=== PATIENT | female | born 1980 | race Caucasian/White ===

== ENCOUNTER 2017-04-07 22:08 | Emergency (ER) | payer OTHER ==
[2017-04-07 22:11] VITALS: TEMP 36.8
--- NOTE | 2017-04-07 22:42 | DIAGNOSTIC IMAGING REPORT ---
RIGHT ANKLE MIN 3 VIEWS ROUTINE CLINICAL HISTORY: 37 years-old Female presenting with fall Right. TECHNIQUE: Frontal, mortise, and lateral views of the right and ankle were obtained. COMPARISON: None. FINDINGS: Ankle mortise intact. No acute fracture or malalignment. No significant degenerative change. IMPRESSION: No acute osseous injury of the right ankle. Electronically signed by: Dat Lance M.D. 04/07/2017 10:41 PM Dictated Date/Time: 04/07/2017 10:40 PM
[2017-04-07 23:06] VITALS: BP 125/81; PULSE 80; O2SAT 95
--- NOTE | 2017-04-07 23:11 | EMERGENCY ROOM VISIT NOTE ---
History First contact with patient: 22:25 Chief Complaint: ANKLE PAIN Stated Complaint: TWISTED R LEG History of Present Illness The patient is a 37 year old female who presents to the Emergency Room with complaints of a right ankle injury. The patient was walking down a hill prostate 5 hours ago and her foot got caught in a manhole. She then fell, twisting her ankle. She complains of pain over the front and lateral aspect of the ankle. She denies any pain extending into the leg or foot. She denies paresthesias or numbness of the right foot or toes, and rates her pain a 9 out of 10 with weightbearing. The patient has taken ibuprofen and applying ice without relief. Review of Systems 10 system review was performed and was negative except for pertinent positives and negatives as indicated in history of present illness Past Medical/Surgical History Medical Problems: (1) No significant past medical history Surgical Problems: (1) No history of previous surgery Family History No pertinent family history Social History Smoking Status: Never Smoker Alcohol Use: none Housing Status: lives with family Physical Exam Vital Signs Date Time Temp Pulse Resp B/P (MAP) Pulse Ox O2 Delivery O2 Flow Rate FiO2 04/07/17 22:11 36.8 78 18 112/76 98 Room Air Physical Exam CONSTITUTIONAL: Morbidly obese female, alert and oriented X 3 with positive affect. HEENT: Normocephalic, atraumatic. Pupils equal, round and reactive. NECK: Full active range of motion without discomfort. MUSCULOSKELETAL: Examination of the right lower extremity shows lateral ankle edema. No open wounds noted. Negative anterior draw. No focal tenderness to palpation over the dorsal midfoot, metatarsals, phalanges, calcaneus, Achilles tendon or proximal fibular region. Pedal pulses are intact. Patient does have a superficial abrasion to the left anterior knee. INTEGUMENTARY: No rash or other significant dermatologic conditions noted. NEUROLOGIC: Right foot and toes are sensory intact. Medical Decision & Procedures ER Provider Diagnostic Interpretation: My interpretation of right ankle x-rays does not show any acute fractures, dislocation or ankle mortise asymmetry. Radiologist report is as follows: RIGHT ANKLE MIN 3 VIEWS ROUTINE CLINICAL HISTORY: 37 years-old Female presenting with fall Right. TECHNIQUE: Frontal, mortise, and lateral views of the right and ankle were obtained. COMPARISON: None. FINDINGS: Ankle mortise intact. No acute fracture or malalignment. No significant degenerative change. IMPRESSION: No acute osseous injury of the right ankle. ED Course Patient history and physical exam were performed. Nurse's notes were reviewed. Vital signs were reviewed normal. The patient does speak limited Khmer. She does have a friend with her is fluent in Khmer, and refuses interpretation services. X-rays of the right ankle were normal. The patient reports significant pain with weightbearing. She was offered crutches but refused. The patient was encouraged to limit weightbearing, and ice and elevate the ankle for best pain relief. She may alternate ibuprofen and Tylenol as needed for additional pain relief. She was instructed to perform range of motion exercises to prevent stiffness. She was instructed to follow- up with her PCP or an orthopedic surgeon as needed if symptoms are not improving within the next week. The patient was happy with plan of care, and rated her discomfort a 5 out of 10 at the time of discharge. Medical Decision Blood Pressure Screening Patient's blood pressure: Normal blood pressure Impression Primary Impression: Right ankle sprain Departure Information Dispostion Home / Self-Care Forms HOME CARE DOCUMENTATION FORM, IMPORTANT VISIT INFORMATION Patient Instructions [facility] Additional Instructions Ice and elevate ankle for swelling and pain. No weight on foot until symptoms improve. Perform range of motion exercises of the ankle to prevent stiffness. Ibuprofen 800 mg and/or Tylenol 1000 mg every 8 hours. You may also alternate these medications for more effective pain relief: Ibuprofen --4 HRS--> Tylenol --4 HRS--> ibuprofen --4 HRS--> Tylenol .... Follow-up with your family doctor or orthopedic surgeon if symptoms are not improving within the next 5-7 days. Problem Qualifiers Primary Impression: Right ankle sprain Encounter type: initial encounter Involved ligament of ankle: unspecified ligament Qualified Codes: S93.401A - Sprain of unspecified ligament of right ankle, initial encounter
== END 2017-04-07 23:07 | disposition home or self-care (01) ==
LOC: C.EDB 22:09 → C.EDD 23:07
DX: S93.401A Sprain of unspecified ligament of right ankle, initial encounter (principal); X50.9XXA Other and unspecified overexertion or strenuous movements or postures, initial encounter

== ENCOUNTER 2018-03-13 15:02 | Observation (INO) | payer OTHER ==
[~2018-03-13 15:02] MED LIST: CEPH500C2 PO; PREN1TAB29; TRZVC VAGRING; VNTHFA/IN INH
--- NOTE | 2018-03-13 16:52 | HISTORY & PHYSICAL EXAMINATION ---
DATE OF ADMISSION: 03/13/2018 CHIEF COMPLAINT: Intrauterine , 30 weeks 6 days, left-sided hip pain, pain on walking. HISTORY OF PRESENT ILLNESS: Patient is a 38-year-old 3, para 1. She had 1 first trimester spontaneous Ab. General health is good. Her due date is 05/16/2018. She is presently being worked up for gestational diabetes. She is on vitamins. First in 2007, a boy, 7 pounds, spontaneous vaginal delivery, 41 weeks, 24-hour labor, pushed for about 2 hours. She has had left hip pain for about the past 2 days. It has been getting progressively worse. She called the answering service and stated she has pain on her left side and pain when she walked. She was told to come to maternity for evaluation. PAST MEDICAL HISTORY: She has a son, 10 years old. No history of rheumatic fever, heart disease, heart murmur, diabetes, tuberculosis. ALLERGIES: No known drug allergies. PAST SURGICAL HISTORY: Status post T&A. SOCIAL HISTORY: No smoking. No alcohol intake. [id number] mom. FAMILY HISTORY: Mom is 60, had a stroke at age 49, paralyzed on her left side, suspected high blood pressure. Dad 65, in good health. Two brothers and 1 sister, all in good health. REVIEW OF SYSTEMS: HEAD: No symptoms of frequent or severe headaches. EYES: No symptoms of blurred vision or double vision. PHYSICAL EXAMINATION: GENERAL: Well-developed and well-nourished 38-year-old white female, alert, oriented x3, cooperative, in no acute distress, appears her stated age. HEENT: Head is normocephalic, normal distribution of hair. Eyes: Conjunctivae are pink. Sclerae are white. No evidence of jaundice. Ears had normal light reflex bilaterally. Nose had normal mucosa. Septum is midline. There were no polyps. Throat: No erythema or evidence of infection. Teeth are in good state of repair. NECK: Supple. Trachea midline. Thyroid is not enlarged. There is no adenopathy appreciated. Both carotids are of good intensity. CHEST: Clear to auscultation and percussion. No wheezes, rales, or rhonchi appreciated. CARDIOVASCULAR: Heart had regular rhythm. S1 and S2 are normal. GASTROINTESTINAL: Abdomen is consistent with a 30 weeks size . No CVA tenderness. No abdominal tenderness. MUSCULOSKELETAL: There was no tenderness of her thigh, no tenderness of her calf. IMPRESSION: Suspected gestational diabetes. Intrauterine of 30 weeks 1 day, possible round ligament pain, and pelvic pain due to , rule out phlebitis.
[2018-03-13] MEDS ORDERED: IV FLUIDS COMPLETED PRN (17:00)
--- NOTE | 2018-03-13 17:24 | DIAGNOSTIC IMAGING REPORT ---
VENOUS DOPPLER LWR EXT BILA HISTORY: Pain. Edema. pain on walking COMPARISON STUDY: None. FINDINGS: There is normal compressibility, flow, and augmentation within the bilateral lower extremity deep venous systems. IMPRESSION: No DVT within the right or left lower extremity. The above report was generated using voice recognition software. It may contain grammatical, syntax or spelling errors. Electronically signed by: Edmond Zarate M.D. 03/13/2018 5:23 PM Dictated Date/Time: 03/13/2018 5:23 PM
== END 2018-03-13 17:40 | disposition home or self-care (01) ==
LOC: C.OPB 15:02 → C.LD 15:02 → C.OPB 16:42 → C.LD 17:40
PROVIDERS: ADMIT Obstetrics & Gynecology; ATTEND Obstetrics & Gynecology
DX: O26.893 Other specified pregnancy related conditions, third trimester (principal); R10.2 Pelvic and perineal pain; M25.552 Pain in left hip; O09.523 Supervision of elderly multigravida, third trimester; Z3A.30 30 weeks gestation of pregnancy